=== PATIENT | male | born 1940 | race American Indian/Alaskan Native ===

== ENCOUNTER 2018-09-17 11:17 | Observation (INO) | payer MEDICARE ==
[2018-09-17] MEDS ORDERED: ZOFRAN IV PRN ×2 (12:00→14:28)
[2018-09-17] MEDS ORDERED: DILAUDID IV PRN (12:00)
--- NOTE | 2018-09-17 12:00 | Anesthesia Consultation ---
Anesthesia Consult and Med Hx - Airway Anesthetic Teeth Evaluation: Dentures, Edentulous Mental/Hyoid Distance: Adequate Mallampati Class: Class II Intubation Access Assessment: Good - Pulmonary Exam CTA: Yes - Cardiac Exam Cardiac Exam: RRR - Pre-Operative Health Status ASA Pre-Surgery Classification: ASA2 Proposed Anesthetic Plan: General - Pulmonary Hx Smoking: Yes (STOPPED X 40 YRS) Hx Sleep Apnea: No (JERE PRE SCREEN HIGH RISK) - Cardiovascular System Hx Hypertension: Yes (X 10 YRS) - Other Systems Hx Alcohol Use: No Hx Cancer: No - Additional Comments Anesthesia Medical History Comments: 78 year old male , clinically and legally blind-unknown cause, HTN and high CHL
--- NOTE | 2018-09-17 12:00 | Anesthesia Day of Surgery ---
Anesthesia Day of Surgery - Day of Surgery Patient Examined: Yes Patient H&P Reviewed: Yes Patient is NPO: Yes
[2018-09-17] MEDS: LACTATED RINGERS 1,000 ML IV SCH (12:10)
[2018-09-17] MEDS ORDERED: ANCEF/STERILE WATER 2 GM/20 ML 2 GM/20 ML SYRINGE IV ONE (12:36)
[2018-09-17] MEDS ORDERED: ANCEF/STERILE WATER 2 GM/20 ML IV NR (12:36)
[2018-09-17 12:41] LABS: Eosinophils # (Auto) 0.1 K/mm3 (0.0-0.4); Eosinophils % (Auto) 2.3 % (0.0-4.3); Hematocrit 32.7 % (35.5-45.6); Hemoglobin 10.8 gm/dl (11.8-15.2); Lymphocytes % (Auto) 25.1 % (13.4-35.0); Mean Corpuscular HGB Conc 33 % (32-34); Mean Corpuscular Volume 98 fl (84-94); Monocytes # (Auto) 0.4 K/mm3 (0.0-0.8); Monocytes % (Auto) 9.5 % (0.0-7.3); Platelet Count 220 K/mm3 (140-440); Red Blood Count 3.34 M/mm3 (3.65-5.03); Red Cell Distribution Width 13.5 % (13.2-15.2)
[2018-09-17] MEDS ORDERED: DIPRIVAN 10 MG/ML IV ONE (13:01)
[2018-09-17] MEDS ORDERED: XYLOCAINE MPF 2% ONE (13:01)
[2018-09-17] MEDS ORDERED: SUBLIMAZE ONE (13:01)
[2018-09-17] MEDS ORDERED: WATER FOR IRRIG STERILE IR ONE (13:08)
[2018-09-17] MEDS ORDERED: SORBITOL-MANNITOL IRRIG IR ONE (13:08)
[2018-09-17] MEDS ORDERED: NACL 0.9% IR ONE (13:08)
--- NOTE | 2018-09-17 14:10 | Consultation ---
History of Present Illness - Reason for Consult Consult date: 09/17/18 Medical management Requesting physician: LASHA MARCOS - History of Present Illness 78 YO Male with HTN, HLD, Schizophrenia, BPH admitted for elective urologic surgery. Consult placed by Dr. Marcos for medical management. Pt seen and evaluated uopn arrival to his room. Pt resting comfortably in bed. Pt denies fever, chills, CP, Palpitations, NVD, Trauma, headache, or shortness of breath. No reported nursing events. Past History Past Medical History: hypertension, hyperlipidemia, other (BPH, Schizophrenia) Past Surgical History: TURP Social history: , lives with family Family history: hypertension Medications and Allergies Allergies Allergy/AdvReac Type Severity Reaction Status Date / Time No Known Allergies Allergy Verified 09/08/18 14:48 Home Medications Medication Instructions Recorded Confirmed Last Taken Type AtorvaSTATin [Lipitor] 10 mg PO QHS 09/08/18 09/08/18 09/16/18 History Losartan [Cozaar] 100 mg PO QDAY 09/08/18 09/08/18 09/16/18 History Tamsulosin [Flomax] 0.4 mg PO QDAY 09/08/18 09/08/18 09/16/18 History amLODIPine [Norvasc] 5 mg PO DAILY 09/08/18 09/08/18 09/16/18 History Active Meds: Active Medications Cefazolin Sodium (Ancef/Sterile Water 2 Gm/20 Ml) 2 gm IV PREOP NR Stop: 09/17/18 23:59 Hydromorphone HCl (Dilaudid) 0.5 mg IV Q10MIN PRN PRN Reason: Pain , Severe (7-10) Lactated Ringer's (Lactated Ringers) 1,000 mls @ 100 mls/hr IV DIRECT JEREMIAH Last Admin: 09/17/18 12:10 Dose: 100 mls/hr Documented by: Ondansetron HCl (Zofran) 4 mg IV ONCE PRN PRN Reason: Nausea And Vomiting Review of Systems Constitutional: no weight loss, no weight gain, no fever, no chills Ears, nose, mouth and throat: no ear pain, no ear discharge, no tinnitis, no decreased hearing, no nose pain Cardiovascular: no chest pain, no orthopnea, no palpitations, no rapid/irregular heart beat, no edema Respiratory: no cough, no cough with sputum, no excessive sputum, no hemoptysis, no shortness of breath Gastrointestinal: no abdominal pain, no nausea, no vomiting, no diarrhea, no constipation Genitourinary Male: no hematuria, no flank pain, no discharge, no urinary frequency, no urinary hesitancy Rectal: no incontinence, no bleeding Musculoskeletal: no neck stiffness, no neck pain, no shooting arm pain, no arm numbness/tingling Integumentary: no rash, no pruritis, no redness, no sores, no wounds Neurological: no head injury, no transient paralysis, no paralysis, no weakness, no parathesias, no numbness, no seizures Psychiatric: no anxiety, no memory loss, no change in sleep habits, no sleep disturbances, no insomnia, no hypersomnia, no change in appetite Endocrine: no cold intolerance, no heat intolerance, no polyphagia, no excessive thirst, no polydipsia Hematologic/Lymphatic: no easy bruising, no easy bleeding Allergic/Immunologic: no urticaria, no allergic rhinitis, no wheezing Exam - Constitutional Vitals: Temp Pulse Resp BP Pulse Ox 98.1 F 61 18 162/81 98 09/17/18 12:15 09/17/18 12:15 09/17/18 12:15 09/17/18 12:15 09/17/18 12:15 General appearance: Present: no acute distress, well-nourished - EENT Eyes: Present: PERRL ENT: hearing intact, clear oral mucosa - Neck Neck: Present: supple, normal ROM - Respiratory Respiratory effort: normal Respiratory: bilateral: CTA - Cardiovascular Heart Sounds: Present: S1 & S2. Absent: rub, click - Extremities Extremities: pulses symmetrical, No edema Peripheral Pulses: within normal limits - Abdominal General gastrointestinal: Present: soft, non-tender, non-distended, normal bowel sounds Male genitourinary: Present: normal (Bird catheter in place. CBI in place) - Integumentary Integumentary: Present: clear, warm, dry - Musculoskeletal Musculoskeletal: gait normal, strength equal bilaterally - Psychiatric Psychiatric: appropriate mood/affect, intact judgment & insight - Neurologic Neurologic: CNII-XII intact, moves all extremities Results - Labs CBC & Chem 7: 09/17/18 16:07 09/17/18 16:07 Labs: Abnormal lab results 09/17/18 09/17/18 Range/Units 12:10 12:10 WBC 4.0 L (4.5-11.0) K/mm3 RBC 3.34 L (3.65-5.03) M/mm3 Hgb 10.8 L (11.8-15.2) gm/dl Hct 32.7 L (35.5-45.6) % MCV 98 H (84-94) fl [place] % (Auto) 9.5 H (0.0-7.3) % Lymph # 1.0 L (1.2-5.4) K/mm3 Crossmatch See Detail Assessment and Plan - Patient Problems (1) HTN (hypertension) Current Visit: Yes Status: Acute Qualifiers: Hypertension type: essential hypertension Qualified Code(s): I10 - Essential (primary) hypertension Plan to address problem: Monitor BP q shift, Pain control, continue prehospital medication, IV hydralazine PRN for systolic above 155 (2) HLD (hyperlipidemia) Current Visit: Yes Status: Acute Qualifiers: Hyperlipidemia type: mixed hyperlipidemia Qualified Code(s): E78.2 - Mixed hyperlipidemia Plan to address problem: statin therapy, low cholesterol diet,
--- NOTE | 2018-09-17 14:24 | Short Stay Summary ---
Short Stay Documentation Date of service: 09/17/18 Narrative H&P: 78 yr old male with gross hematuria & urinary obstruction despite medical mgmt Pt & family (granddaughter - Daisy Winston) agree to proceed with TURP - History Past Medical History: hypertension, other (mental illness, blindness) Past Surgical History: No surgical history Social history: - Allergies and Medications Current Medications: Allergies No Known Allergies Allergy (Verified 09/08/18 14:48) Home Medications Medication Instructions Recorded Confirmed Last Taken Type AtorvaSTATin [Lipitor] 10 mg PO QHS 09/08/18 09/08/18 09/16/18 History Losartan [Cozaar] 100 mg PO QDAY 09/08/18 09/08/18 09/16/18 History Tamsulosin [Flomax] 0.4 mg PO QDAY 09/08/18 09/08/18 09/16/18 History amLODIPine [Norvasc] 5 mg PO DAILY 09/08/18 09/08/18 09/16/18 History Active Medications Cefazolin Sodium (Ancef/Sterile Water 2 Gm/20 Ml) 2 gm IV PREOP NR Stop: 09/17/18 23:59 Hydromorphone HCl (Dilaudid) 0.5 mg IV Q10MIN PRN PRN Reason: Pain , Severe (7-10) Lactated Ringer's (Lactated Ringers) 1,000 mls @ 100 mls/hr IV DIRECT JEREMIAH Last Admin: 09/17/18 12:10 Dose: 100 mls/hr Documented by: Ondansetron HCl (Zofran) 4 mg IV ONCE PRN PRN Reason: Nausea And Vomiting - Physical exam General appearance: no acute distress, well-nourished Integumentary: no rash, no growths HEENT: Atraumatic, PERRLA Lungs: Clear to auscultation, Normal air movement Breasts: normal Heart: Regular rate, No murmurs Gastrointestinal: normal Male Genitourinary: normal Rectal Exam: normal rectal tone Extremities: no ischemia, No edema Neurological: Normal gait - Brief post op/procedure progress note Date of procedure: 09/17/18 Pre-op diagnosis: BPH Post-op diagnosis: same Procedure: CYSTO, RPG, TURP, CYSTOGRAM Anesthesia: GETA Surgeon: LASHA ALVARADO Estimated blood loss: minimal Pathology: list (PROSTATE CHIPS) Specimen disposition: to lab Condition: stable - Hospital course Hospital course: BACTRIM & NORCO ON CHART home with huston - Disposition Condition at discharge: Stable Disposition: DC-01 TO HOME OR SELFCARE Short Stay Discharge Plan Follow up with: LASHA ALVARADO MD [Staff Physician] - 7 Days PRIMARY CARE, [Primary Care Provider] - 7 Days
[2018-09-17] MEDS ORDERED: NORCO 5/325 PO PRN (14:28)
[2018-09-17] MEDS ORDERED: AMBIEN PO PRN (14:28)
[2018-09-17] MEDS ORDERED: NARCAN 0.4 MG/1 ML IV PRN (14:28)
[2018-09-17] MEDS ORDERED: MORPHINE IV PRN (14:28)
--- NOTE | 2018-09-17 14:56 | Operative Report ---
PREOPERATIVE DIAGNOSIS: Benign prostatic hypertrophy. POSTOPERATIVE DIAGNOSIS: Benign prostatic hypertrophy. PROCEDURE: Cystoscopy, bilateral retrograde pyelograms, transurethral resection of the prostate, cystogram. SURGEON: Otf Marcos MD ANESTHESIA: General. ESTIMATED BLOOD LOSS: Minimal. FLUIDS: Crystalloid. COMPLICATIONS: No complications. INDICATIONS: This 78-year-old gentleman presented to the office with his granddaughter who is his power of assistant city attorney with urinary retention. He had fallen, had presented to [facility]. Bird catheter was placed. Urodynamic testing revealed obstructive uropathy. Bird catheter had to be replaced. We discussed options. They agreed to proceed with surgical intervention. Risks, benefits, and complications were explained. His primary care physician is Dr. Gary Bowen. DESCRIPTION OF PROCEDURE: The patient was taken to the operative suite, placed in supine position. After adequate general anesthesia, placed in a dorsal lithotomy position, prepped and draped in a sterile fashion. Pancystourethroscopy was performed with a 22-American Storz cystoscope, no urethral abnormalities. His prostate displayed trilobar obstruction. His bladder, no tumors or stones were noted. He had diffuse trabeculation. Bilateral retrograde pyelograms were obtained with an 8 American Shelby catheter and 8 mL of contrast. No filling defects or obstruction. He had a J hooking of the distal ureter consistent with a large prostate. Using a 27-American resectoscope and loop with the cutting and coag on 160 and 60, transurethral resection of the prostate was performed in a systematic fashion, taking down the median lobe, right and left lateral lobes respectively. Chips were evacuated out with the Skip Hop evacuator. Upon completion of the procedure, the verumontanum and external sphincter were intact. A 22-American 3-way catheter was placed with the aid of a stylet, irrigated clear, it did require some mild traction. No clots could be appreciated. He was extubated and taken to recovery room in stable condition. He will be observed overnight and go home on Bactrim and Lyons. JOB# [id number] [facility]
[2018-09-17] MEDS ORDERED: NACL 0.9% 4,000 ML ONE (15:38)
[2018-09-17] MEDS ORDERED: NACL 0.9% 500 ML 500 ML IV SCH (16:03)
[2018-09-17 16:52] LABS: Basophils % (Auto) 0.7 % (0.0-1.8); Eosinophils # (Auto) 0.1 K/mm3 (0.0-0.4); Hematocrit 29.8 % (35.5-45.6); Hemoglobin 9.9 gm/dl (11.8-15.2); Lymphocytes # (Auto) 1.3 K/mm3 (1.2-5.4); Lymphocytes % (Auto) 30.6 % (13.4-35.0); Mean Corpuscular HGB Conc 33 % (32-34); Mean Corpuscular Volume 98 fl (84-94); Monocytes # (Auto) 0.5 K/mm3 (0.0-0.8); Monocytes % (Auto) 10.7 % (0.0-7.3); Platelet Count 207 K/mm3 (140-440); Red Blood Count 3.06 M/mm3 (3.65-5.03); Red Cell Distribution Width 13.3 % (13.2-15.2)
[2018-09-17 17:00] LABS: BUN/Creatinine Ratio 14; Blood Urea Nitrogen 17 mg/dL (9-20); Calcium 8.6 mg/dL (8.4-10.2); Hemolysis Index 5
[2018-09-17] MEDS ORDERED: APRESOLINE IV PRN (18:39)
[2018-09-17] MEDS: NACL 0.9% IR SCH ×4 (20:20→23:56)
[2018-09-17] MEDS: ANCEF/NS 1 GM/50 ML 1 GM/50 ML BAG IV SCH (21:34)
[2018-09-17] MEDS ORDERED: NACL 0.9% 500 ML IV SCH (23:45)
[2018-09-18] MEDS ORDERED: NACL 0.9% 1,000 ML IR ONE (00:27)
[2018-09-18] MEDS: NACL 0.9% IR SCH ×6 (03:34→09:16)
[2018-09-18] MEDS: ANCEF/NS 1 GM/50 ML 1 GM/50 ML BAG IV SCH (04:58)
--- NOTE | 2018-09-18 07:43 | Fluoroscopy Report ---
FLUORO RETROGRADE UROGRAPHY FLUORO CYSTOGRAM STATIC - OR INDICATION: BPH. COMPARISON: None similar at this institution. IMAGES/CINE CLIPS: 8+1 FINDINGS: Submitted 8 fluoroscopic images demonstrate normal opacification and caliber of both ureters. No persistent suspicious filling defects. No hydronephrosis. Some motion artifact. Submitted 1 image for the cystogram suggest grossly normal urinary bladder contours and an intrinsic catheter balloon. Final image demonstrates empty urinary bladder. CONCLUSION: Intraoperative fluoroscopic assistance provided for Dr. Marcos, as described. 40 mL of Omnipaque-300 utilized for the procedure. Thank you for the opportunity to participate in this patient's care.
[2018-09-18 08:20] LABS: Basophils % (Auto) 0.2 % (0.0-1.8); Eosinophils % (Auto) 0.3 % (0.0-4.3); Hematocrit 31.9 % (35.5-45.6); Hemoglobin 10.7 gm/dl (11.8-15.2); Lymphocytes # (Auto) 0.8 K/mm3 (1.2-5.4); Lymphocytes % (Auto) 8.2 % (13.4-35.0); Mean Corpuscular HGB Conc 33 % (32-34); Mean Corpuscular Volume 96 fl (84-94); Monocytes # (Auto) 0.9 K/mm3 (0.0-0.8); Monocytes % (Auto) 9.1 % (0.0-7.3); Platelet Count 207 K/mm3 (140-440); Red Blood Count 3.33 M/mm3 (3.65-5.03); Red Cell Distribution Width 13.8 % (13.2-15.2)
[2018-09-18 09:11] VITALS: BP 163/74
[2018-09-18] MEDS: LACTATED RINGERS 1,000 ML IV SCH (09:19)
[2018-09-18] MEDS ORDERED: COZAAR PO SCH (10:00)
[2018-09-18] MEDS ORDERED: NORVASC PO SCH (10:00)
[2018-09-18] MEDS ORDERED: NON-FORMULARY (Losartan [Cozaar] 100 MG) PO SCH (10:00)
--- NOTE | 2018-09-18 10:26 | Progress Note ---
Assessment and Plan Assessment and plan: 78 YO Male with HTN, HLD, Schizophrenia, BPH admitted for elective urologic surgery. Consult placed by Dr. Marcos for medical management. Pt seen and Pt resting comfortably in bed. No reported nursing events. (1) HTN (hypertension) Current Visit: Yes Status: Acute Qualifiers: Hypertension type: essential hypertension Qualified Code(s): I10 - Essential (primary) hypertension Plan to address problem: Monitor BP q shift, Pain control, continue prehospital medication, IV hydralazine PRN for systolic above 155 (2) HLD (hyperlipidemia) Current Visit: Yes Status: Acute Qualifiers: Hyperlipidemia type: mixed hyperlipidemia Qualified Code(s): E78.2 - Mixed hyperlipidemia Plan to address problem: statin therapy, low cholesterol diet, History Interval history: Patient was seen and evaluated this morning, patient didn't have any complaints. Hospitalist Physical - Physical exam Narrative exam: Not in cardiopulmonary distress. The patient appeared well nourished and normally developed. Vital signs as documented. Head exam is unremarkable. No scleral icterus . Neck is without jugular venous distension, thyromegaly, or carotid bruits. Lungs are clear to auscultation. Cardiac exam reveals regular rate and Rhythm. First and second heart sounds normal. No murmurs, rubs or gallops. Abdominal exam reveals normal bowel sounds, no masses, no organomegaly and no ao rtic enlargement. Extremities are nonedematous and both femoral and pedal pulses are normal. CERTIFIED ENERGY MANAGER: Alert and oriented 3. No focal weakness. - Constitutional Vitals: Temp Pulse Resp BP Pulse Ox 99.1 F 84 18 163/74 97 09/18/18 08:00 09/18/18 09:17 09/18/18 08:00 09/18/18 09:17 09/18/18 07:13 General appearance: Present: no acute distress, well-nourished Results - Labs CBC & Chem 7: 09/18/18 07:43 09/17/18 16:07 Labs: Laboratory Last Values WBC 10.1 K/mm3 (4.5-11.0) 09/18/18 07:43 RBC 3.33 M/mm3 (3.65-5.03) L 09/18/18 07:43 Hgb 10.7 gm/dl (11.8-15.2) L 09/18/18 07:43 Hct 31.9 % (35.5-45.6) L 09/18/18 07:43 MCV 96 fl (84-94) H 09/18/18 07:43 MCH 32 pg (28-32) 09/18/18 07:43 MCHC 33 % (32-34) 09/18/18 07:43 RDW 13.8 % (13.2-15.2) 09/18/18 07:43 Plt Count 207 K/mm3 (140-440) 09/18/18 07:43 Lymph % (Auto) 8.2 % (13.4-35.0) L 09/18/18 07:43 [place] % (Auto) 9.1 % (0.0-7.3) H 09/18/18 07:43 Eos % (Auto) 0.3 % (0.0-4.3) 09/18/18 07:43 Baso % (Auto) 0.2 % (0.0-1.8) 09/18/18 07:43 Lymph # 0.8 K/mm3 (1.2-5.4) L 09/18/18 07:43 [place] # 0.9 K/mm3 (0.0-0.8) H 09/18/18 07:43 Eos # 0.0 K/mm3 (0.0-0.4) 09/18/18 07:43 Baso # 0.0 K/mm3 (0.0-0.1) 09/18/18 07:43 Seg Neutrophils % 82.2 % (40.0-70.0) H 09/18/18 07:43 Seg Neutrophils # 8.3 K/mm3 (1.8-7.7) H 09/18/18 07:43 Sodium 145 mmol/L (137-145) 09/17/18 16:07 Potassium 4.4 mmol/L (3.6-5.0) 09/17/18 16:07 Chloride 106.2 mmol/L (98-107) 09/17/18 16:07 Carbon Dioxide 31 mmol/L (22-30) H 09/17/18 16:07 12 mmol/L 09/17/18 16:07 BUN 17 mg/dL (9-20) 09/17/18 16:07 1.2 mg/dL (0.8-1.5) 09/17/18 16:07 Estimated GFR > 60 ml/min 09/17/18 16:07 14 % 09/17/18 16:07 Glucose 104 mg/dL (75-100) H 09/17/18 16:07 Calcium 8.6 mg/dL (8.4-10.2) 09/17/18 16:07 Blood Type O POSITIVE 09/17/18 12:10 Antibody Screen Negative 09/17/18 12:10 Crossmatch See Detail 09/17/18 12:10 Active Medications - Current Medications Current Medications: Generic Name Dose Route Start Last Admin Trade Name Freq PRN Reason Stop Dose Admin Acetaminophen/Hydrocodone Bitart 2 each 09/17/18 14:28 [place] 5/325 PO Q4H PRN Pain, Moderate (4-6) Amlodipine Besylate 5 mg 09/18/18 10:00 09/18/18 09:18 Norvasc PO 5 mg DAILY JEREMIAH Administration Atorvastatin Calcium 10 mg 09/17/18 22:00 09/17/18 21:35 Lipitor PO 10 mg QHS JEREMIAH Administration Hydralazine HCl 10 mg 09/17/18 18:39 09/18/18 01:35 Apresoline IV 10 mg Q6HR PRN Administration Hypertension Hydromorphone HCl 0.5 mg 09/17/18 12:00 09/17/18 14:54 Dilaudid IV 0.5 mg Q10MIN PRN Administration Pain , Severe (7-10) Lactated Ringer's 1,000 mls @ 100 mls/hr 09/17/18 12:00 09/18/18 09:19 Lactated Ringers IV 100 mls/hr DIRECT JEREMIAH Administration Losartan Potassium 100 mg 09/18/18 10:00 09/18/18 09:17 Cozaar PO 100 mg QDAY JEREMIAH Administration Morphine Sulfate 2 mg 09/17/18 14:28 Morphine IV Q4H PRN Pain, Moderate (4-6) Naloxone HCl 0.1 mg 09/17/18 14:28 Narcan 0.4 Mg/1 Ml IV Q2MIN PRN Res Rate </= 8 or 02 SAT < 92% Ondansetron HCl 4 mg 09/17/18 12:00 Zofran IV ONCE PRN Nausea And Vomiting Ondansetron HCl 4 mg 09/17/18 14:28 Zofran IV Q8H PRN Nausea And Vomiting Sodium Chloride 2,000 ml 09/17/18 15:00 09/18/18 09:16 Nacl 0.9% IR 2,000 ml DIRECT JEREMIAH Administration Sodium Chloride 500 ml 09/17/18 23:45 Nacl 0.9% 500 Ml IV DIRECT JEREMIAH Zolpidem Tartrate 5 mg 09/17/18 14:28 Ambien PO QHS PRN Sleep
--- NOTE | 2018-09-18 12:13 | Progress Note ---
Assessment and Plan chen clear home with cath here with daughter f/u saturday Subjective Date of service: 09/18/18 Principal diagnosis: BUENO Objective - Constitutional Vitals: Vital Signs - 12hr 09/18/18 09/18/18 09/18/18 00:35 00:50 01:20 Temperature 98.2 F 98.6 F 98.6 F Pulse Rate 68 75 75 Respiratory 18 18 18 Rate Blood Pressure 162/67 175/85 171/89 Blood Pressure [Left] O2 Sat by Pulse 98 97 95 Oximetry 09/18/18 09/18/18 09/18/18 01:35 01:50 02:20 Temperature 98.7 F 98.7 F Pulse Rate 98 H 90 Respiratory 18 18 Rate Blood Pressure 171/89 166/91 169/85 Blood Pressure [Left] O2 Sat by Pulse 97 97 Oximetry 09/18/18 09/18/18 09/18/18 02:50 03:20 03:46 Temperature 97.8 F 98.4 F 98.4 F Pulse Rate 92 H 94 H 90 Respiratory 18 18 18 Rate Blood Pressure 180/87 183/83 181/90 Blood Pressure [Left] O2 Sat by Pulse 96 96 96 Oximetry 09/18/18 09/18/18 09/18/18 04:38 06:07 06:16 Temperature 98.9 F Pulse Rate 93 H 96 H 98 H Respiratory 16 Rate Blood Pressure Blood Pressure 158/77 [Left] O2 Sat by Pulse 97 98 96 Oximetry 09/18/18 09/18/18 09/18/18 07:13 08:00 09:17 Temperature 99.1 F Pulse Rate 88 84 84 Respiratory 18 Rate Blood Pressure 163/74 Blood Pressure 163/74 [Left] O2 Sat by Pulse 97 Oximetry General appearance: Present: no acute distress - Neck Neck: supple - Respiratory Respiratory effort: normal Extremities: no ischemia - Gastrointestinal General gastrointestinal: Present: soft, non-tender - Labs CBC & Chem 7: 09/18/18 07:43 09/17/18 16:07 Labs: Abnormal lab results 09/17/18 09/17/18 09/17/18 Range/Units 12:10 12:10 16:07 WBC 4.0 L (4.5-11.0) K/mm3 RBC 3.34 L (3.65-5.03) M/mm3 Hgb 10.8 L (11.8-15.2) gm/dl Hct 32.7 L (35.5-45.6) % MCV 98 H (84-94) fl Lymph % (Auto) (13.4-35.0) % [place] % (Auto) 9.5 H (0.0-7.3) % Lymph # 1.0 L (1.2-5.4) K/mm3 [place] # (0.0-0.8) K/mm3 Seg Neutrophils % (40.0-70.0) % Seg Neutrophils # (1.8-7.7) K/mm3 Carbon Dioxide 31 H (22-30) mmol/L Glucose 104 H (75-100) mg/dL Crossmatch See Detail 09/17/18 09/18/18 Range/Units 16:07 07:43 WBC 4.3 L (4.5-11.0) K/mm3 RBC 3.06 L 3.33 L (3.65-5.03) M/mm3 Hgb 9.9 L 10.7 L (11.8-15.2) gm/dl Hct 29.8 L 31.9 L (35.5-45.6) % MCV 98 H 96 H (84-94) fl Lymph % (Auto) 8.2 L (13.4-35.0) % [place] % (Auto) 10.7 H 9.1 H (0.0-7.3) % Lymph # 0.8 L (1.2-5.4) K/mm3 [place] # 0.9 H (0.0-0.8) K/mm3 Seg Neutrophils % 82.2 H (40.0-70.0) % Seg Neutrophils # 8.3 H (1.8-7.7) K/mm3 Carbon Dioxide (22-30) mmol/L Glucose (75-100) mg/dL Crossmatch Medications & Allergies - Medications Allergies/Adverse Reactions: Allergies No Known Allergies Allergy (Verified 09/08/18 14:48) Home Medications: Home Medications Medication Instructions Recorded Confirmed Last Taken Type AtorvaSTATin [Lipitor] 10 mg PO QHS 09/08/18 09/08/18 09/16/18 History Losartan [Cozaar] 100 mg PO QDAY 09/08/18 09/08/18 09/16/18 History Tamsulosin [Flomax] 0.4 mg PO QDAY 09/08/18 09/08/18 09/16/18 History amLODIPine [Norvasc] 5 mg PO DAILY 09/08/18 09/08/18 09/16/18 History Active Medications: Generic Name Dose Route Start Last Admin Trade Name Freq PRN Reason Stop Dose Admin Acetaminophen/Hydrocodone Bitart 2 each 09/17/18 14:28 [place] 5/325 PO Q4H PRN Pain, Moderate (4-6) Amlodipine Besylate 5 mg 09/18/18 10:00 09/18/18 09:18 Norvasc PO 5 mg DAILY JEREMIAH Administration Atorvastatin Calcium 10 mg 09/17/18 22:00 09/17/18 21:35 Lipitor PO 10 mg QHS JEREMIAH Administration Hydralazine HCl 10 mg 09/17/18 18:39 09/18/18 01:35 Apresoline IV 10 mg Q6HR PRN Administration Hypertension Hydromorphone HCl 0.5 mg 09/17/18 12:00 09/17/18 14:54 Dilaudid IV 0.5 mg Q10MIN PRN Administration Pain , Severe (7-10) Lactated Ringer's 1,000 mls @ 100 mls/hr 09/17/18 12:00 09/18/18 09:19 Lactated Ringers IV 100 mls/hr DIRECT JEREMIAH Administration Losartan Potassium 100 mg 09/18/18 10:00 09/18/18 09:17 Cozaar PO 100 mg QDAY JEREMIAH Administration Morphine Sulfate 2 mg 09/17/18 14:28 Morphine IV Q4H PRN Pain, Moderate (4-6) Naloxone HCl 0.1 mg 09/17/18 14:28 Narcan 0.4 Mg/1 Ml IV Q2MIN PRN Res Rate </= 8 or 02 SAT < 92% Ondansetron HCl 4 mg 09/17/18 12:00 Zofran IV ONCE PRN Nausea And Vomiting Ondansetron HCl 4 mg 09/17/18 14:28 Zofran IV Q8H PRN Nausea And Vomiting Sodium Chloride 2,000 ml 09/17/18 15:00 09/18/18 09:16 Nacl 0.9% IR 2,000 ml DIRECT JEREMIAH Administration Sodium Chloride 500 ml 09/17/18 23:45 Nacl 0.9% 500 Ml IV DIRECT JEREMIAH Zolpidem Tartrate 5 mg 09/17/18 14:28 Ambien PO QHS PRN Sleep
--- NOTE | 2018-09-18 12:14 | Discharge Summary ---
Short Stay Discharge Plan Activity: other (no straining ) Weight Bearing Status: Full Weight Bearing Diet: regular, low salt Special Instructions: other (inc fluids ) Durable Medical Equipment Needed Upon Discharge: other (teach huston care ) Follow up with: PRIMARY CARE, [Primary Care Provider] - 7 Days LASHA ALVARADO MD [Staff Physician] - 7 Days
== END 2018-09-18 13:35 | disposition home or self-care (01) ==
LOC: OR 11:17 → 3B-SURG 14:28
PROVIDERS: ADMIT Urology; ATTEND Urology
DX: N40.1 Benign prostatic hyperplasia with lower urinary tract symptoms (principal); N99.820 Postprocedural hemorrhage of a genitourinary system organ or structure following a genitourinary system procedure; I10 Essential (primary) hypertension; E78.5 Hyperlipidemia, unspecified; F20.9 Schizophrenia, unspecified; N40.0 Benign prostatic hyperplasia without lower urinary tract symptoms; R33.8 Other retention of urine; H54.7 Unspecified visual loss; R94.31 Abnormal electrocardiogram [ECG] [EKG]; Z98.890 Other specified postprocedural states; Z82.49 Family history of ischemic heart disease and other diseases of the circulatory system; Z79.899 Other long term (current) drug therapy
CPT/HCPCS: 36415; 36430; 52601; 74420; 74430; 80048; 85025; 86850; 86900; 86901; 86920; 88305; 96365; 96366; 96375; A4217; A9270; G0378; J0360; J0690; J1170; J2704; J3010; J7040; J7120; P9016; Q9967

== ENCOUNTER 2021-06-27 07:47 | Outpatient (CLI) | payer MEDICARE ==
--- NOTE | 2021-06-27 09:03 | Cat Scan Report ---
CT ABDOMEN AND PELVIS WITHOUT CONTRAST INDICATION / CLINICAL INFORMATION: C61 prostate cancer . TECHNIQUE: Axial CT images were obtained through the abdomen and pelvis without IV contrast. Sagittal and aguilera l reformatted images. All CT scans at this location are performed using CT dose reduction for ALARA b y means of automated exposure control. COMPARISON: None available. FINDINGS: LOWER CHEST: No significant abnormality. LIVER: No significant abnormality. Numerous tiny calcified granulomas are noted. GALLBLADDER: No significant abnormality. BILE DUCTS: No significant abnormality. PANCREAS: No significant abnormality. SPLEEN: No significant abnormality. Numerous tiny calcified granulomas are noted. ADRENALS: No significant abnormality. RIGHT KIDNEY and URETER: No significant abnormality. LEFT KIDNEY and URETER: No significant abnormality. STOMACH and SMALL BOWEL: No significant abnormality. COLON: No significant abnormality. APPENDIX: Not clearly identified. PERITONEUM: No free fluid. No free air. No fluid collection. LYMPH NODES: There is bulky bilateral iliac and retroperitoneal adenopathy. The largest lymph node in the right side of the pelvis measures 3.4 cm in short axis. The largest lymph node in the left pelvi s measures 2.2 cm in short axis. The largest left para-aortic lymph node measures 1.8 cm in short axi s. AORTA and ARTERIES: No significant abnormality. IVC and VEINS: No significant abnormality. URINARY BLADDER: No significant abnormality. REPRODUCTIVE ORGANS: The prostate gland is markedly enlarged measuring up to 8.1 cm in diameter. ADDITIONAL FINDINGS: None. SKELETAL SYSTEM: Multiple sclerotic bony lesions are identified in the thoracolumbar spine, superior sacrum and right iliac bone. There is an expansile sclerotic bony lesion involving the left lateral s eventh rib which is partially imaged. IMPRESSION: Markedly enlarged prostate gland. Bulky retroperitoneal and bilateral iliac adenopathy. Multiple bony lesions as described. These findings are consistent with metastatic prostate cancer. Signer Name: Sancho Qureshi Jr, MD Signed: 06/27/2021 8:58 AM Workstation Name: [id number]
--- NOTE | 2021-06-27 11:46 | Nuclear Medicine Report ---
NUCLEAR MEDICINE BONE SCAN, WHOLE BODY INDICATION: C61. Prostate cancer. TECHNIQUE: 26.1 mCi of Tc-99m MDP were injected IV. Whole body images were obtained. COMPARISON: Noncontrast CT abdomen and pelvis performed the same day.. FINDINGS: Skeletal Lesions: There are numerous areas of increased radiotracer uptake throughout the axial skele ton consistent with metastatic disease. There are numerous areas of increased uptake in the bilateral ribs, thoracic and lumbar spine, pelvis, right scapula, proximal right humerus and proximal right fe mur. Soft Tissues: Normal. Kidneys: Normal, symmetric activity. Additional Findings: None. IMPRESSION: Numerous areas of metastatic disease are noted throughout the axial and proximal appendicular skelet on as described.. Signer Name: Sancho Qureshi Jr, MD Signed: 06/27/2021 11:41 AM Workstation Name: [id number]
== END 2021-06-27 07:48 | disposition home or self-care (01) ==
LOC: NM 07:47
PROVIDERS: ATTEND Urology
DX: C61 Malignant neoplasm of prostate (principal); R59.0 Localized enlarged lymph nodes; N40.0 Benign prostatic hyperplasia without lower urinary tract symptoms
CPT/HCPCS: 74176; 78306; A9503